=== PATIENT | male | born 1955 | race Caucasian/White ===

== ENCOUNTER 2016-06-06 14:22 | Inpatient (IN) | payer OTHER ==
--- NOTE | ~2016-06-06 | CN ---
Consultation Report [place] [id number] [facility] [place]. [address] NAME: SAIRA JORGE : 55 STATUS : ADM Nathan PAT#: [id number] AGE: 60 ADM/REG DATE : 06/06/16 MR#: [id number] REPORT SERV DATE: 06/07/16 DICTATED BY: Addison ZULUAGA DATE: 06/07/16 REPORT STATUS : Draft TRANSCRIBED BY: MODL DATE: 06/07/16 DATE OF CONSULTATION: CHIEF COMPLAINT: Left distal ureteral stone with elevated creatinine. HISTORY OF PRESENT ILLNESS: Mr. Jorge is a 60-year-old white male admitted with indeterminate abdominal pain and left flank pain, as well as decreased colostomy output. He has a history of colon cancer and since over the last several days, he has had diminished output from his ostomy. CT scan in the emergency room showed a 3 mm UVJ stone. His creatinine increased from a baseline about 1.6-2.5. It should be noted he also had an elevated lipase of over 800. He denies any fever, chills, nausea, vomiting, or previous stone disease. PAST MEDICAL HISTORY: 1. Colon cancer. 2. Hypertension. PAST SURGICAL HISTORY: Tonsillectomy, rectal cancer status post colorectal resection with ileostomy reversal and then colostomy in 2014. HOME MEDICATIONS: Lidocaine patch and Aleve 220 mg daily p.r.n. ALLERGIES: NO KNOWN DRUG ALLERGIES. REVIEW OF SYSTEMS: Full twelve-point review of systems negative except as noted above. SOCIAL HISTORY: The patient quit smoking in 2014. Denies alcohol use. FAMILY HISTORY: Negative for urologic disease. PHYSICAL EXAMINATION: GENERAL: A pleasant 60-year-old white male, alert and oriented x3. VITAL SIGNS: Afebrile with normal vital signs. HEENT: Normocephalic, atraumatic. CHEST: No respiratory distress. HEART: Regular rate and rhythm. ABDOMEN: Nontender, nondistended. He does have a left-sided ostomy. BACK: No CVA tenderness noted. : Normal external genitalia. EXTREMITIES: No peripheral edema noted. The patient is ambulatory. PERTINENT LABORATORY: Creatinine 2.52. Lipase 885. White count 13,000. Urinalysis, positive for trace ketones and protein, 18 red cells. No evidence of infection. Consultation Report [place] [address] [place]. [address] NAME: SAIRA JORGE : 55 STATUS : ADM Nathan PAT#: [id number] AGE: 60 ADM/REG DATE : 06/06/16 MR#: [id number] REPORT SERV DATE: 06/07/16 DICTATED BY: Addison ZULUAGA DATE: 06/07/16 REPORT STATUS : Draft TRANSCRIBED BY: MODL DATE: 06/07/16 IMPRESSION: 1. History of colorectal cancer status post resection with ostomy. 2. Left distal ureteral stone. 3. Acute renal failure. PLAN: He is relatively asymptomatic. He could certainly try to pass this with whatever else is going on. He would rather resolve this issue, which I think is reasonable in addition to the fact that his creatinine is up. We will proceed today with cysto, retrograde stone extraction, stent placement, and proceed as indicated depending upon our intraoperative findings. He understands the risks of bleeding, infection, anesthesia, stent discomfort, etc. There were no unanswered questions. BELLA/FERDINAND Addison Zuluaga M.D. / [id number] CC: Mike Vela M.D. Richard Hunter Jennings III, M.D.
--- NOTE | ~2016-06-06 | HP ---
History And Physical [address] [address] NAME: SAIRA JORGE : 55 STATUS : REG ER PAT#: [id number] AGE: 60 ADM/REG DATE : 06/06/16 MR#: [id number] REPORT SERV DATE: 06/06/16 DICTATED BY: MARTHA LYNN DATE: 06/06/16 REPORT STATUS : Draft TRANSCRIBED BY: MODL DATE: 06/06/16 DATE OF ADMISSION: 06/06/2016 ATTENDING PHYSICIAN: Dr. Goldstein. REASON FOR ADMISSION: Pancreatitis, possible bowel obstruction, possible ureteral stone obstructing. HISTORY: This is a 60-year-old white male, who has had colon cancer. Dr. Gomez removed the colon cancer and the patient was left with colostomy. There was no evidence of metastasis in the past. He ate a big supper last night. His ostomy has now been functioning however for the last 36 hours. He was eating well but in the night he began having abdominal pain in around the ostomy site. He came to the emergency room but cannot complain the pain. He had an elevated lipase of over 800. Dr. Maritza Perez subjected him to a CT scan of the abdomen. A CT scan of the abdomen and pelvis showed no evidence of any bowel obstruction. He has a partially obstructing stone at the left UVJ which would coincide with the site of the patient's pain. There is evidence of hydronephrosis according to Dr. Huang Duffy who phoned the result to Dr. Perez as a late add-on of the information. The patient has not had any fever or chills. He has had no nausea or vomiting. He has not eaten much today. He does have some chronic kidney disease and his creatinine at baseline is 1.6 and is now up to 2.52. He has left lower quadrant pain to the left and inferior to the ostomy site and also in the lower back. His creatinine is 2.52, alkaline phosphatase 221, and lipase was 885. White count 16191 with a hemoglobin of 15 and hematocrit of 43. PAST MEDICAL HISTORY: He had a colon cancer that was removed in February 2013. He had ileostomy reversal and the ileostomy developed a perforation, so he is back with the ileostomy again. He used to have a high blood pressure which has gone away since his colorectal cancer. He has had no heart attack or diabetes. He has had left knee surgery and tonsillectomy. He had chemotherapy in [address] Chavez and radiation therapy as well. SOCIAL HISTORY: He quit smoking in September 2014. He was just a jrx-uubi-b-day smoker. No alcohol. No recreational drug use. 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 FAMILY HISTORY: His mother had breast cancer and amelanotic melanoma. She also had mitral stenosis and had a valve replaced and lived to an age in her 80s with some dementia. His History And Physical [address] [place]. [address] NAME: SAIRA JORGE : 55 STATUS : REG ER PAT#: [id number] AGE: 60 ADM/REG DATE : 06/06/16 MR#: [id number] REPORT SERV DATE: 06/06/16 DICTATED BY: MARTHA LYNN DATE: 06/06/16 REPORT STATUS : Draft TRANSCRIBED BY: FERDINAND DATE: 06/06/16 father lived to an old age. 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 HOME MEDICATIONS: Naprosyn and Lidoderm patches are all listed. REVIEW OF SYSTEMS: He has had no chest pain. No shortness of breath. No fever, chills, or night sweats. No unilateral weakness. He does have some nausea but no vomiting. His abdomen is diffusely tender. He has had no fits, seizures, convulsions, melena, or hematemesis. He has had obstipation. No swelling in the lower extremities. No fits, seizures, convulsions, or unilateral weakness. The remainder of the review of systems is negative. PHYSICAL EXAMINATION: GENERAL: A well-developed white male, in no acute distress. VITAL SIGNS: Blood pressure initially 141/80 with a heart rate of 62, respiratory rate 14, temperature 98.7, and oxygen saturation 97%. HEENT: EOMI. Sclerae clear. Conjunctivae slightly injected. NECK: No bruit without any JVD. CHEST: Clear to A and P. HEART: Regular S1, S2 without murmur, gallop, or click. ABDOMEN: Soft, diffusely tender. There is more tenderness in the left lower quadrant. EXTREMITIES: Had no edema. Distal pulses are intact as are the dorsalis pedis and posterior tibial. NEUROLOGIC: He withdraws to plantar stimulation. His ampoule filler and sealer is equal and symmetric bilaterally. Coordination intact. He has no tremor. He is alert and oriented to person, place, and time. Tongue is dry. LYMPHATICS: Not palpable. RECTAL: Exam was not done as he has an ostomy. LABORATORY DATA: The CT scan of the abdomen was outlined above. His sodium is 141, potassium 3.6, his CO2 was 19, the BUN 25 with a creatinine 2.5, glucose was 102, alkaline phosphatase was 221, and lipase was 885. [place] [address], hemoglobin 15.2, hematocrit 43.1, and platelets were 141. ASSESSMENT: 1. Abdominal pain left lower quadrant lateral to the ostomy site. He does have a 3 mm stone with hydronephrosis that was discerned by Dr. Huang Duffy, the radiologist. I am going to go ahead and hydrate, give pain medication, and consult Urology. He may have to have a retrograde or retrieval of the stone if the signs and symptoms of obstruction persist. 2. Acute renal failure on chronic kidney disease. Creatinine at baseline is about 1.6 now up to 2.52. 3. History of rectal cancer stage T3 N2. He was under the impression that he was surgically cured from this; however, he did receive chemotherapy and radiation therapy on review of the old records, he was seen by Dr. Chavez in Radiation Oncology for this previously. History And Physical [address] [place]. [address] NAME: SAIRA JORGE : 55 STATUS : REG ER PAT#: [id number] AGE: 60 ADM/REG DATE : 06/06/16 MR#: [id number] REPORT SERV DATE: 06/06/16 DICTATED BY: MARTHA LYNN DATE: 06/06/16 REPORT STATUS : Draft TRANSCRIBED BY: MODL DATE: 06/06/16 4. Acidosis. 5. Hydronephrosis. 6. Calcification of the pancreas indicates chronic pancreatitis though he does have evidence of acute on chronic pancreatitis with the elevation of the lipase. 7. History of hypertension. We will get urology consultation. I favor stone causing the abdominal pain, dehydration, nausea, and vomiting. DB/MODL Martha Lynn M.D. / [id number] CC: Mike Trinidad M.D. Richard Hunter Jennings III, M.D.
--- NOTE | ~2016-06-06 | DS ---
Discharge Summary [place] [address] [place]. [address] NAME: ERIK JORGE : 55 STATUS : DIS Nathan PAT#: [id number] AGE: 60 ADM/REG DATE : 06/06/16 MR#: [id number] REPORT SERV DATE: 06/09/16 DICTATED BY: ANGEL LESLIE DATE: 06/09/16 REPORT STATUS : Draft TRANSCRIBED BY: MODL DATE: 06/09/16 ADMISSION DATE: 06/06/2016 DISCHARGE DATE: 06/09/2016 UROLOGIST: Addison Gomez M.D. DIAGNOSES ON ADMISSION: 1. Abdominal pain in the left lower lateral quadrant. 2. 3 mm stone with hydronephrosis on the left. 3. Acute kidney injury on chronic kidney disease. 4. History of rectal cancer with a history of surgery and chemotherapy and radiation therapy in the past. 5. Calcifications of the pancreas with possible chronic pancreatitis on the CT scan. 6. Hypertension. DIAGNOSES ON DISCHARGE: 1. Acute kidney injury, present on admission, resolved, multifactorial in nature, related to left-sided ureteral stone with some narrowed ureter as well as related to nonsteroidal antiinflammatory use. 2. Chronic kidney disease with a creatinine being currently at the baseline 1.8. 3. Left-sided hydronephrosis, status post left ureteral stone removal and stent placement by urologist, Dr. Erik Gomez. 4. Possible chronic pancreatitis, asymptomatic with some calcifications in the pancreas on the CT scan. Recommended not to use alcohol. 5. Abdominal pain, resolved. CONSULTANTS ON THE CASE: Dr. Gomez of Urology and Dr. Gomez of General Surgery for colostomy care. PROCEDURES DONE: Cystoscopy, left retrograde pyelography and ureteral dilatation, ureteroscopy with basket stone extraction and double-J stent placement done for left distal ureteral stone with hydronephrosis and elevated creatinine. Ureteral narrowing proximal to the stone of uncertain etiology. IMAGING: CT of the abdomen and pelvis done on 06/06/2016 without contrast: No evidence of bowel obstruction. Partially obstructing stone at the left UPJ. chronic pancreatitis. HISTORY OF PRESENT ILLNESS: Per dictation of Dr. Hwang on 06/06/2016. HOSPITAL COURSE: Briefly, the patient was admitted by Dr. Hwang. He was started on IV fluid hydration for abnormal kidney function as well as he underwent ureteral stent placement per Dr. Gomez. His kidney function improved significantly with IV fluid hydration and his creatinine on admission was 2.52. It improved to 1.83 today which is his baseline because he has chronic kidney disease and his creatinine fluctuates in the range of 1.9 and 1.6. Discharge Summary [place] [address] [place]. [address] NAME: ERIK JORGE : 55 STATUS : DIS Nathan PAT#: [id number] AGE: 60 ADM/REG DATE : 06/06/16 MR#: [id number] REPORT SERV DATE: 06/09/16 DICTATED BY: ANGEL LESLIE DATE: 06/09/16 REPORT STATUS : Draft TRANSCRIBED BY: FERDINAND DATE: 06/09/16 Dr. Gomez recommended the patient to follow up with him because he put a stent on the left ureter and he needs to do more studies because the patient had also narrowed ureter proximal to the stone, so he needs to have outpatient stent removal and cystoscopy in seven days and he has an appointment scheduled 06/15/2016 at 3:15. Also the patient was strongly recommended to avoid nonsteroid anti-inflammatories because they can cause kidney failure. He was recommended to avoid alcohol since he has chronic pancreatitis on the CT scan. The patient was doing well. He was discharged in a stable condition. He recommended to drink plenty of fluids. He was recommended to avoid nonsteroidal antiinflammatories. He was recommended to stop his Aleve. The patient is okay to continue his Lidoderm patch. I spent 45 minutes on discharge. FOLLOWUP: The patient needs to follow up with Dr. Gomez. Appointment already scheduled, and he needs to follow up with the primary care physician, Dr. Sepulveda, in 7 to 10 days. I spent 45 minutes on discharge. MG/MODL Angel Leslie M.D. / [id number] CC: Mike Vela M.D. J. Patrick Dilworth, M.D.
--- NOTE | ~2016-06-06 | OP ---
Record Of Operation [facility] [address] [place]. [address] NAME: SAIRA JORGE : 55 STATUS : ADM Nathan PAT#: [id number] AGE: 60 ADM/REG DATE : 06/06/16 MR#: [id number] REPORT SERV DATE: 06/07/16 DICTATED BY: Addison ZULUAGA DATE: 06/07/16 REPORT STATUS : Draft TRANSCRIBED BY: MODL DATE: 06/07/16 DATE OF PROCEDURE: 06/07/2016 PREOPERATIVE DIAGNOSIS: Left distal ureteral stone with hydronephrosis and elevated creatinine. POSTOPERATIVE DIAGNOSES: 1. Left distal ureteral stone with hydronephrosis and elevated creatinine. 2. Ureteral narrowing proximal to stone, of uncertain etiology. PROCEDURE: Cystoscopy, left retrograde pyelography, ureteral dilation, ureteroscopy with basket stone extraction, and double-J stent placement. SURGEON: Addison Zuluaga M.D. ANESTHESIA: General. COMPLICATIONS: None. DRAINS: 7-Finnish x 22 cm Contour double-J stent. BRIEF HISTORY: Mr. Jorge is a 60-year-old white male, admitted with left flank pain and decreased ostomy output for several days. A CT showed an obstructing left distal ureteral stone. His creatinine was up from baseline of about 1.6 to 2.5. He has a history of colorectal cancer treated with excision, colostomy, and chemo radiation. He had no history of stone disease. We discussed options and due to his discomfort and the fact that his creatinine was up, he wanted to proceed today. The risks of bleeding, infection, anesthesia, injury to adjacent organs, need for postoperative stent, etc. were all discussed. There were no unanswered questions. DESCRIPTION OF PROCEDURE: Under excellent general anesthesia, the patient was prepped and draped in a standard lithotomy position. Cystoscopy was performed with the 30-degree lens, revealed a normal anterior urethra. The posterior urethra showed a steep median bar. The right orifice appeared grossly normal. The left orifice appeared edematous, consistent with a distal stone. I immediately went to an angled wire through a 5-Finnish open-ended catheter and I fortunately was able to manipulate it past the stone into the area of the collecting system. I initially tried to place the ureteroscope alongside the wire, but the orifice was too tight. There was additionally a lot of bladder mucosa heaped around it in an unusual fashion. I then took an 11 ureteral access sheath. I first used the 9-Finnish inner sheath to dilate the ureter, but could still not advance the scope and then the 9 and 11 together were used to dilate the distal ureter. I was unable to access and see 3-4 mm stone with some smaller fragments nearby. A Nitinol basket was used to extract it primarily and it was sent for analysis. Other smaller fragments were left in the bladder. I tried to reinsert the scope more proximally, just to make sure that there was not any more proximal debris, but I could not advance it about it to just below the vessels. I injected contrast and there appeared narrowing in this area of the ureter. I do not know, this certainly does not Record Of Operation [address] [place]. [address] NAME: SAIRA JORGE : 55 STATUS : ADM Nathan PAT#: [id number] AGE: 60 ADM/REG DATE : 06/06/16 MR#: [id number] REPORT SERV DATE: 06/07/16 DICTATED BY: Addison ZULUAGA DATE: 06/07/16 REPORT STATUS : Draft TRANSCRIBED BY: FERDINAND DATE: 06/07/16 seem to go along with this process, could be due to his previous surgery or to radiation, but I decided to leave well enough alone. I retrofitted the wire into the cystoscope and placed a 7-Finnish x 22 cm Contour double-J stent, which coiled nicely in the renal pelvis and bladder. It passed the area of narrowing with ease and so, I am not sure if it is clinically significant at any rate. I terminated the procedure. Took the patient to the recovery room. I think he needs a stent for 7-10 days. Further evaluation of his left ureter will depend upon the symptomatology. The stone was sent for analysis. In the future, a 24 cm stent might be a little bit better fit. NAKULD/MODL Addison Zuluaga M.D. / [id number] CC: Katey Feliciano M.D. Randall Sepulveda M.D. Sharath Gomez III, M.D.
--- NOTE | ~2016-06-06 | CN ---
Consultation Report [facility] [address] [place]. [address] NAME: ERIK JORGE : 55 STATUS : ADM Nathan PAT#: [id number] AGE: 60 ADM/REG DATE : 06/06/16 MR#: [id number] REPORT SERV DATE: 06/08/16 DICTATED BY: ALYSSA MCCALL III DATE: 06/08/16 REPORT STATUS : Draft TRANSCRIBED BY: MODL DATE: 06/08/16 CONSULT DATE OF CONSULTATION: 06/07/2016 REASON FOR CONSULT: 1. Abdominal pain. 2. Possible bowel obstruction. 3. Recommendation regarding surgical management. HISTORY OF PRESENT ILLNESS: I am asked to see this 60-year-old male admitted to the hospital for the above reasons. The patient is well known to me. He has a previous history of rectal cancer. He is treated in the past with preoperative neoadjuvant therapy including radiation therapy and chemotherapy, followed by low anterior resection of the rectum with diverting ileostomy with ileostomy closure. 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 He required diverting colostomy which is permanent. On this admission, the patient complained of abdominal pain in the left lower quadrant and left flank area. He presented to the emergency room because of acute pain and he was found to have a distal left ureteral obstruction. This was treated by Dr. Erik Gomez with removal of the stone. The patient states that he feels better this morning. He states his colostomy has been functioning well. He has had no nausea or vomiting. PAST MEDICAL HISTORY: History of rectal cancer. The patient initially presented with a T3 N2 M0 rectal cancer. He underwent low anterior resection of the rectum with diverting ileostomy on 04/16/2012. This was proceeded by preoperative chemotherapy and radiation therapy. The patient underwent ileostomy closure on 02/26/2013. Following this, the patient developed anastomotic leak, requiring replacement of his ileostomy. His ileostomy was subsequently closed on 10/22/2013. He subsequently required a diverting colostomy because of radiation proctitis on 10/23/2014. The patient has no evidence for recurrence of his malignancy. He has done very well since this colostomy and gained weight and returned to his normal activities. ALLERGIES: NONE. MEDICATIONS: As per medication list. 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 He is . He lives in [place], [place]. He has a current history of tobacco use and a previous history of alcohol use. FAMILY HISTORY: Positive for cancer and stroke. REVIEW OF SYSTEMS: The patient's 14-point review of systems is otherwise unremarkable. Consultation Report [place] [id number] [place]. [address] NAME: ERIK JORGE : 55 STATUS : ADM Nathan PAT#: [id number] AGE: 60 ADM/REG DATE : 06/06/16 MR#: [id number] REPORT SERV DATE: 06/08/16 DICTATED BY: ALYSSA MCCALL III DATE: 06/08/16 REPORT STATUS : Draft TRANSCRIBED BY: MODL DATE: 06/08/16 PHYSICAL EXAMINATION: OBJECTIVE PHYSICAL EXAM: GENERAL: He is a male, in no acute distress. He is alert and oriented x3. He appears very comfortable. VITAL SIGNS: Blood pressure 128/78, temperature 99.3, and pulse 71. HEENT: Unremarkable. NEUROLOGIC: Cranial nerves 2 through 12 are normal. LUNGS: Clear. CARDIAC: Normal. ABDOMEN: Soft and nontender. EXTREMITIES: Normal. : It should be noted that he has a colostomy in place in the left lower quadrant which is functioning well. LABORATORY DATA: CT scan of the abdomen and pelvis on admission showed evidence for a distal left ureteral stone. The stomach was noted to be fluid-filled but not distended. No evidence for bowel obstruction was seen. ASSESSMENT: 1. A 60-year-old male with abdominal pain, related to acute left ureteral obstruction secondary to renal stones, which has now been removed. 2. Remote history of rectal cancer, status post preoperative neoadjuvant therapy, chemotherapy followed by low anterior resection of the rectum and diverting ileostomy, ileostomy closure, and subsequent colostomy due to radiation proctitis. 3. Radiation proctitis. PLAN: The patient's acute symptoms have resolved. His colostomy is functioning well. I believe his diet can be advanced as tolerated. He has no evidence for an acute surgical abdomen and I believe his symptoms were related to his ureteral stone which has been removed. At this time, I see no evidence of a need for acute surgical intervention. We will advance the patient's diet as tolerated and follow him with you. This plan has been explained to the patient. His questions have been answered. He understands and agrees to this as planned. It should be noted that on admission the patient's white blood cell count was elevated at 13,000. It has decreased today to 8.9. His electrolytes are remarkable for an elevated creatinine of 2.2. RHJ/FERDINAND Consultation Report [place] [address] [facility] [place] [address] NAME: ERIK JORGE : 55 STATUS : ADM Nathan PAT#: [id number] AGE: 60 ADM/REG DATE : 06/06/16 MR#: [id number] REPORT SERV DATE: 06/08/16 DICTATED BY: ALYSSA MCCALL III DATE: 06/08/16 REPORT STATUS : Draft TRANSCRIBED BY: FERDINAND DATE: 06/08/16 Alyssa Mccall III, M.D. / [id number] CC: Mike Prasad M.D.
[2016-06-06 13:31] LABS: BASOPHILS 0.2 %; BASOPHILS ABSOLUTE 0.02 10/3/uL (0.0-0.16); EOSINOPHILS 0.1 %; EOSINOPHILS ABSOLUTE 0.01 10/3/uL (0.0-0.53); IMMATURE GRANULOCYTES 0.2 %; IMMATURE GRANULOCYTES ABSOLUTE 0.02 10/3/uL (0.0-0.11); LYMPHOCYTES 3.8 %; MEAN CORPUSCULAR HEMOGLOB 33.9 pg (26.0-34.0); MEAN PLATELET VOLUME 10.7 fL (9.2-13.0); MONOCYTES 4.6 %; NEUTROPHILS 91.1 %; NEUTROPHILS ABSOLUTE 11.86 10/3/uL (2.02-8.40); PLATELET COUNT 141 10/3/uL (150-400); RBC DISTRIBUTION WIDTH 12.8 % (12.0-16.0); RED CELL COUNT 4.49 10/6/uL (4.7-6.1)
[2016-06-06 13:34] LABS: ER CBC TAT 0 Hrs 07 Mins; HEMATOCRIT 43.1 % (40.0-51.0); HEMOGLOBIN 15.2 g/dL (13.6-17.8); MANUAL DIFF NO %; MEAN CORPUS HGB CONC 35.3 g/dL (32.0-36.0)
[2016-06-06 13:46] LABS: ALBUMIN 3.9 G/DL (3.5-5.0); BUN (BLOOD UREA NITROGEN) 25 MG/DL (6-23); CALCIUM, SERUM 8.7 MG/DL (8.5-10.4); CHLORIDE, SERUM 111 MMOL/L (96-112); CO2 (CARBON DIOXIDE) 19 MMOL/L (24-34); CREATININE 2.52 MG/DL (0.70-1.30); GFR AFRICAN AMERICAN 31 ML/MIN (>=60); GFR NON AFRICAN AMERICAN 27 ML/MIN (>=60); GLUCOSE, SERUM 102 MG/DL (60-99); POTASSIUM, SERUM 3.6 MMOL/L (3.5-5.3); SGOT(AST) 15 U/L (5-40); SGPT(ALT) 23 U/L (5-65); SODIUM, SERUM 141 MMOL/L (135-148); TOTAL BILIRUBIN 1.1 MG/DL (0-1.2); TOTAL PROTEIN 7.7 G/DL (6.0-8.5)
[2016-06-06 13:47] LABS: ALKALINE PHOSPHATASE 221 U/L (45-117); GLOBULIN 3.8 G/DL (2.5-4.1)
[~2016-06-06 14:22] MED LIST: ADVIL PO; ALEVE220 MG PO; CENTRUM TAB1 TAB PO; FLOMAX4 PO; IBU-200200 MG PO; IMOD PO; LEVBID PO; LOM PO; LORTAB 5 PO; MIDODRINE10 MG OR; MULTIPLE VIT PO; PERCOCET1 TA2 PO; PROAMAT5 PO; SB325 PO; SODBICAR10 PO; VICODINTAB PO; WELCHOL625 MG OR; WELCHOL625 MG PO; XELODA PO; ZOFRAN8 PO
[2016-06-06] MEDS ORDERED: LIDODERM TOP (14:25)
[2016-06-06 17:33] LABS: ASCORBIC ACID (UR NOT ORDER) NEG (NEG); BILIRUBIN, URINE NEGATIVE (NEG); ER URINALYSIS TAT 0 Hrs 11 Mins; KETONE, URINE TRACE MG/DL (NEG); LEUKOCYTE ESTERASE(NOT OR NEG (NEG); NITRITE (URINE) NEG (NEG); WBC (NOT ORDERED) (RFLEX) 1 (0-5)
[2016-06-07 00:30] LABS: LACTATE 1.4 MMOL/L (0.3-2.4)
[2016-06-07 05:19] LABS: BASOPHILS 0.1 %; BASOPHILS ABSOLUTE 0.01 10/3/uL (0.0-0.16); EOSINOPHILS 0.2 %; EOSINOPHILS ABSOLUTE 0.02 10/3/uL (0.0-0.53); HEMOGLOBIN 12.2 g/dL (13.6-17.8); IMMATURE GRANULOCYTES 0.3 %; IMMATURE GRANULOCYTES ABSOLUTE 0.04 10/3/uL (0.0-0.11); LYMPHOCYTES ABSOLUTE 0.88 10/3/uL (0.67-4.30); MEAN CORPUS HGB CONC 34.7 g/dL (32.0-36.0); MEAN CORPUSCULAR HEMOGLOB 33.7 pg (26.0-34.0); MEAN CORPUSCULAR VOLUME 97.2 fL (80-100); MEAN PLATELET VOLUME 10.8 fL (9.2-13.0); MONOCYTES 7.1 %; NEUTROPHILS 85.3 %; NEUTROPHILS ABSOLUTE 10.77 10/3/uL (2.02-8.40); PLATELET COUNT 111 10/3/uL (150-400); RBC DISTRIBUTION WIDTH 13.2 % (12.0-16.0); RED CELL COUNT 3.62 10/6/uL (4.7-6.1); WHITE BLOOD CELLS 12.6 10/3/uL (4.5-10.5)
[2016-06-07 05:21] LABS: HEMATOCRIT 35.2 % (40.0-51.0); MANUAL DIFF NO %
[2016-06-07 05:32] LABS: BUN (BLOOD UREA NITROGEN) 23 MG/DL (6-23); CALCIUM, SERUM 7.8 MG/DL (8.5-10.4); CHLORIDE, SERUM 113 MMOL/L (96-112); CO2 (CARBON DIOXIDE) 18 MMOL/L (24-34); CREATININE 2.49 MG/DL (0.70-1.30); GFR AFRICAN AMERICAN 31 ML/MIN (>=60); GFR NON AFRICAN AMERICAN 27 ML/MIN (>=60); GLUCOSE, SERUM 105 MG/DL (60-99); POTASSIUM, SERUM 3.8 MMOL/L (3.5-5.3); SODIUM, SERUM 142 MMOL/L (135-148)
[2016-06-08 06:23] LABS: BASOPHILS 0 %; EOSINOPHILS 0 %; HEMOGLOBIN 12.3 g/dL (13.6-17.8); IMMATURE GRANULOCYTES 0.3 %; IMMATURE GRANULOCYTES ABSOLUTE 0.03 10/3/uL (0.0-0.11); LYMPHOCYTES 4.8 %; LYMPHOCYTES ABSOLUTE 0.43 10/3/uL (0.67-4.30); MEAN CORPUS HGB CONC 34.2 g/dL (32.0-36.0); MEAN CORPUSCULAR HEMOGLOB 33.7 pg (26.0-34.0); MEAN CORPUSCULAR VOLUME 98.6 fL (80-100); MEAN PLATELET VOLUME 11.1 fL (9.2-13.0); MONOCYTES 5.2 %; MONOCYTES ABSOLUTE 0.46 10/3/uL (0.21-1.20); NEUTROPHILS 89.7 %; NEUTROPHILS ABSOLUTE 7.98 10/3/uL (2.02-8.40); PLATELET COUNT 107 10/3/uL (150-400); RBC DISTRIBUTION WIDTH 12.9 % (12.0-16.0); RED CELL COUNT 3.65 10/6/uL (4.7-6.1); WHITE BLOOD CELLS 8.9 10/3/uL (4.5-10.5)
[2016-06-08 06:25] LABS: MANUAL DIFF NO %
[2016-06-08 06:42] LABS: BUN (BLOOD UREA NITROGEN) 23 MG/DL (6-23); CALCIUM, SERUM 8.1 MG/DL (8.5-10.4); CHLORIDE, SERUM 115 MMOL/L (96-112); CO2 (CARBON DIOXIDE) 20 MMOL/L (24-34); CREATININE 2.21 MG/DL (0.70-1.30); GFR AFRICAN AMERICAN 36 ML/MIN (>=60); GFR NON AFRICAN AMERICAN 31 ML/MIN (>=60); POTASSIUM, SERUM 4.3 MMOL/L (3.5-5.3); SGOT(AST) 14 U/L (5-40); SGPT(ALT) 16 U/L (5-65); SODIUM, SERUM 144 MMOL/L (135-148)
[2016-06-08 06:52] LABS: A/G RATIO 0.8 (0.7-1.9); ALBUMIN 2.7 G/DL (3.5-5.0); ALKALINE PHOSPHATASE 167 U/L (45-117); GLOBULIN 3.3 G/DL (2.5-4.1); GLUCOSE, SERUM 146 MG/DL (60-99); TOTAL BILIRUBIN 0.5 MG/DL (0-1.2)
[2016-06-09 06:26] LABS: BASOPHILS 0.3 %; BASOPHILS ABSOLUTE 0.02 10/3/uL (0.0-0.16); EOSINOPHILS 0.8 %; EOSINOPHILS ABSOLUTE 0.05 10/3/uL (0.0-0.53); HEMATOCRIT 35.8 % (40.0-51.0); HEMOGLOBIN 12.2 g/dL (13.6-17.8); IMMATURE GRANULOCYTES 0.5 %; IMMATURE GRANULOCYTES ABSOLUTE 0.03 10/3/uL (0.0-0.11); LYMPHOCYTES 17.3 %; LYMPHOCYTES ABSOLUTE 1.15 10/3/uL (0.67-4.30); MEAN CORPUS HGB CONC 34.1 g/dL (32.0-36.0); MEAN CORPUSCULAR HEMOGLOB 33.6 pg (26.0-34.0); MEAN CORPUSCULAR VOLUME 98.6 fL (80-100); MEAN PLATELET VOLUME 11.1 fL (9.2-13.0); MONOCYTES 7.7 %; MONOCYTES ABSOLUTE 0.51 10/3/uL (0.21-1.20); NEUTROPHILS 73.4 %; PLATELET COUNT 109 10/3/uL (150-400); RED CELL COUNT 3.63 10/6/uL (4.7-6.1); WHITE BLOOD CELLS 6.7 10/3/uL (4.5-10.5)
[2016-06-09 06:27] LABS: MANUAL DIFF NO %
[2016-06-09 06:37] LABS: BUN (BLOOD UREA NITROGEN) 20 MG/DL (6-23); CHLORIDE, SERUM 116 MMOL/L (96-112); CO2 (CARBON DIOXIDE) 21 MMOL/L (24-34); CREATININE 1.83 MG/DL (0.70-1.30); GFR AFRICAN AMERICAN 45 ML/MIN (>=60); GFR NON AFRICAN AMERICAN 39 ML/MIN (>=60); SODIUM, SERUM 148 MMOL/L (135-148)
[2016-06-09 06:41] LABS: GLUCOSE, SERUM 74 MG/DL (60-99); POTASSIUM, SERUM 3.4 MMOL/L (3.5-5.3)
[2016-06-09] MEDS ORDERED: PYR200 PO (09:18)
[2016-06-11 17:24] LABS: STONE COMPOSITION TWO DNR (())
[2016-06-27] MEDS ORDERED: T PO (16:52)
== END 2016-06-09 11:00 | disposition home or self-care (01) | DRG 669 ==
LOC: ER 14:22 → 5SO 18:30
PROVIDERS: Emergency Medicine; Hospitalist; Internal Medicine
PROC: 0TC78ZZ Extirpation of Matter from Left Ureter, Via Natural or Artificial Opening Endoscopic (ICD-10-PCS; 2016-06-07)
PROC: 0T778DZ Dilation of Left Ureter with Intraluminal Device, Via Natural or Artificial Opening Endoscopic (ICD-10-PCS; 2016-06-07)
PROC: BT1F1ZZ Fluoroscopy of Left Kidney, Ureter and Bladder using Low Osmolar Contrast (ICD-10-PCS; principal; 2016-06-07 15:00)
DX: N17.9 Acute kidney failure, unspecified (principal); K86.1 Other chronic pancreatitis; E87.2 Acidosis; K56.7 Ileus, unspecified; N13.2 Hydronephrosis with renal and ureteral calculous obstruction; I12.9 Hypertensive chronic kidney disease with stage 1 through stage 4 chronic kidney disease, or unspecified chronic kidney disease; N18.9 Chronic kidney disease, unspecified; Z86.010 Personal history of colon polyps; Z93.3 Colostomy status; Z87.891 Personal history of nicotine dependence; Z80.3 Family history of malignant neoplasm of breast; Z82.49 Family history of ischemic heart disease and other diseases of the circulatory system; Z79.899 Other long term (current) drug therapy; Z90.49 Acquired absence of other specified parts of digestive tract; Z85.048 Personal history of other malignant neoplasm of rectum, rectosigmoid junction, and anus
CPT/HCPCS: 74176; 74420; 80048; 80053; 81001; 82150; 82365; 83605; 83690; 83735; 85025; 85379; 93005; 96374; 96375; 96376; 99285; A9270-GY; C1758; C1769; C1894; C2617; J1170; J2250; J2370; J2405; J2710; J3010; Q9967

== ENCOUNTER 2016-07-01 11:16 | Day surgery (SDC) | payer OTHER ==
[2016-06-29 09:44] LABS: HEMOGLOBIN 13.6 g/dL (13.6-17.8)
[2016-06-29 09:45] LABS: HEMATOCRIT 39.7 % (40.0-51.0)
--- NOTE | ~2016-07-01 | OP ---
Record Of Operation [facility] [address] [place]. [address] NAME: SAIRA JORGE : 55 STATUS : [facility]#: [id number] AGE: 60 ADM/REG DATE : 07/01/16 MR#: [id number] REPORT SERV DATE: 07/01/16 DICTATED BY: Addison ZULUAGA DATE: 07/01/16 REPORT STATUS : Draft TRANSCRIBED BY: MODL DATE: 07/01/16 DATE OF PROCEDURE: 07/01/2016 PREOPERATIVE DIAGNOSIS: Indwelling left double-J stent. POSTOPERATIVE DIAGNOSIS: Indwelling left double-J stent. PROCEDURE: Cystoscopy, removal of left double-J stent, left retrograde pyelogram. SURGEON: Addison Zuluaga M.D. ANESTHESIA: General. COMPLICATIONS: None. DRAINS: None. BRIEF HISTORY: Mr. Jorge is a 60-year-old white male who underwent stone extraction on 06/07/2016. He declined stent removal in the office and wanted to have it done here. I had noticed some ureteral narrowing above the stone of uncertain etiology, which may need further evaluation. He has a history of colon cancer, status post resection followed by ileostomy reversal and end-colostomy as well as chemo and pelvic radiation. Discussed risks of bleeding, infection, anesthesia, recurrent obstruction, . There were no unanswered questions. DESCRIPTION OF PROCEDURE: Under excellent general anesthesia, the patient was prepped and draped in the standard lithotomy position. Cystoscopy was performed with a 30-degree lens, revealed a stent emanating from the left orifice. It was removed with a flexible grasper without difficulty. I performed a left retrograde pyelogram, which showed a normal caliber ureter. It was well decompressed and I did not get the same sense of obstruction proximal to this area of stone, although it may be that he is incompletely distended. I plan to discharge Mr. Jorge as an outpatient with the following instructions. DISCHARGE INSTRUCTIONS: 1. Home today. 2. Call for any problems, otherwise follow up in my office in two to three months, at which time, we will review his stone and consider whether further imaging of his left ureteral drainage system is necessary. BELLA/FERDINAND Addison Zuluaga M.D. Record Of Operation [place] [address] [place]. [address] NAME: SAIRA JORGE : 55 STATUS : [facility]#: [id number] AGE: 60 ADM/REG DATE : 07/01/16 MR#: [id number] REPORT SERV DATE: 07/01/16 DICTATED BY: Addison ZULUAGA DATE: 07/01/16 REPORT STATUS : Draft TRANSCRIBED BY: MODL DATE: 07/01/16 / [id number] CC: Mike Roman M.D. Richard Hunter Jennings III, M.D.
[~2016-07-01 11:16] MED LIST changes: +LIDODERM TOP; +PYR200 PO; +T PO
== END 2016-07-01 15:34 | disposition home or self-care (01) ==
LOC: SDC 11:16
PROC: BT1FZZZ Fluoroscopy of Left Kidney, Ureter and Bladder (ICD-10-PCS; 2016-07-01)
PROC: 0TP98DZ Removal of Intraluminal Device from Ureter, Via Natural or Artificial Opening Endoscopic (ICD-10-PCS; principal; 2016-07-01 12:45)
DX: Z46.6 Encounter for fitting and adjustment of urinary device (principal); F17.210 Nicotine dependence, cigarettes, uncomplicated; M51.36 Other intervertebral disc degeneration, lumbar region; I95.9 Hypotension, unspecified; Z85.048 Personal history of other malignant neoplasm of rectum, rectosigmoid junction, and anus; Z92.21 Personal history of antineoplastic chemotherapy; Z92.3 Personal history of irradiation; Z79.899 Other long term (current) drug therapy; Z90.89 Acquired absence of other organs; Z90.49 Acquired absence of other specified parts of digestive tract; Z98.890 Other specified postprocedural states; Z93.3 Colostomy status
CPT/HCPCS: 74420; 85014; 85018; 93005; C1758; J2250; J2405; J3010; Q9967